=== PATIENT | female | born 1990 | race Caucasian/White ===

== ENCOUNTER 2020-07-13 02:19 | Emergency (ER) | payer OTHER ==
[2020-07-13 02:26] VITALS: BP 130/86; PULSE 74; TEMP 97.9; BMI 24.2
== END 2020-07-13 03:34 | disposition home or self-care (01) ==
LOC: FER 02:19
DX: S62.001A Unspecified fracture of navicular [scaphoid] bone of right wrist, initial encounter for closed fracture (principal); S53.401A Unspecified sprain of right elbow, initial encounter
CPT/HCPCS: 73070-TC-RT-FY; 73130-TC-RT-FY; 99285-25

== ENCOUNTER 2021-04-17 04:12 | Emergency (ER) | payer OTHER ==
[2021-04-17 04:35] VITALS: BP 122/72; PULSE 76; TEMP 98.1; BMI 24.2
== END 2021-04-17 04:44 | disposition home or self-care (01) ==
LOC: FER 04:12
DX: Z77.21 Contact with and (suspected) exposure to potentially hazardous body fluids (principal)
CPT/HCPCS: 99282-25

== ENCOUNTER 2022-08-09 08:25 | Emergency (ER) | payer OTHER ==
[2022-08-09 08:38] VITALS: BP 129/87; PULSE 74; RESP 18; TEMP 98.9; BMI 28.2
== END 2022-08-09 08:56 | disposition home or self-care (01) ==
LOC: FER 08:25
DX: Z77.21 Contact with and (suspected) exposure to potentially hazardous body fluids (principal)
CPT/HCPCS: 99282-25

== ENCOUNTER 2022-09-03 04:10 | Emergency (ER) | payer OTHER ==
[2022-09-03 04:27] VITALS: BP 132/92; PULSE 61; RESP 18; TEMP 98.8
[2022-09-03 04:34] VITALS: BMI 28.2
[2022-09-03] MEDS ORDERED: IBUPROFEN 400 MG TABLET (FP) PO ONE ×2 (04:37→04:41)
== END 2022-09-03 05:41 | disposition home or self-care (01) ==
LOC: FER 04:10
DX: S00.33XA Contusion of nose, initial encounter (principal); R42 Dizziness and giddiness; Y35.891A Legal intervention involving other specified means, law enforcement official injured, initial encounter
CPT/HCPCS: 70160-TC-FY; 99283-25

== ENCOUNTER 2022-09-18 07:53 | Emergency (ER) | payer OTHER ==
[2022-09-18 08:10] VITALS: BP 134/94; PULSE 76; RESP 18; TEMP 98.3; BMI 29.0
[2022-09-18] MEDS ORDERED: IBUPROFEN 600 MG TABLET (FP) PO ONE ×2 (08:21→08:31)
[2022-09-18 11:25] LABS: HEMATOCRIT 40.4 % (32.4-45.2); MCH 30.3 pg (25.7-33.7); MCHC 34.6 g/dl (32.0-36.0); MEAN CELL VOLUME 87.5 fl (80-96); MEAN PLT VOLUME 7.9 fl (7.5-11.1); PLATELET COUNT 253.2 10^3/uL (134-434); RBC 4.62 10^6/uL (3.60-5.2); RDW 14.3 % (11.6-15.6)
[2022-09-18 11:41] LABS: ALBUMIN 4.5 g/dl (3.4-5.0); BILIRUBIN,TOTAL 0.4 mg/dl (0.2-1); BLOOD UREA NITROGEN 21.4 mg/dl (7-18); CALCIUM 9.1 mg/dl (8.5-10.1); CREATININE 0.9 mg/dl (0.6-1.3); SGPT/ALT 22.8 U/L (7-52); TOT PROT 7.3 g/dl (6.4-8.2)
[2022-09-18 12:05] LABS: PLATELET ESTIMATE ADEQUATE
== END 2022-09-18 11:57 | disposition home or self-care (01) ==
LOC: FER 07:53
DX: M79.601 Pain in right arm (principal); R20.2 Paresthesia of skin; W22.8XXA Striking against or struck by other objects, initial encounter; Y99.0 Civilian activity done for income or pay
CPT/HCPCS: 36415; 73030-TC-RT-FY; 73060-TC-RT-FY; 73070-TC-RT-FY; 73110-TC-RT-FY; 73130-TC-RT-FY; 80053; 82550; 85025; 99284-25

== ENCOUNTER 2023-11-16 06:41 | Emergency (ER) | payer OTHER ==
[2023-11-16 06:48] VITALS: BP 126/78; PULSE 83; RESP 16; TEMP 99; BMI 29.2
[2023-11-16] MEDS ORDERED: IBUPROFEN 600 MG TABLET (FP) PO ONE (07:14)
[2023-11-16] MEDS: IBUPROFEN 600 MG TABLET (FP) PO ONE (07:15)
[2023-11-16 08:45] LABS: HEMATOCRIT 42.7 % (32.4-45.2); HEMOGLOBIN 13.7 G/dL (10.7-15.3); MCH 28.6 pg (25.7-33.7); MCHC 32.2 g/dl (32.0-36.0); MEAN CELL VOLUME 88.9 fl (80-96); MEAN PLT VOLUME 9.1 fl (7.5-11.1); PLATELET COUNT 262.2 10^3/uL (134-434); RDW 13.8 % (11.6-15.6); WHITE BLOOD COUNT 7.4 10^3/uL (4.0-10.8)
[2023-11-16 08:57] LABS: ALBUMIN 4.6 g/dl (3.4-5.0); ALK PHOS 89 U/L (45-117); ANION GAP 9 mmol/L (4-13); BILIRUBIN,TOTAL 0.4 mg/dl (0.2-1); CALCIUM 9.3 mg/dl (8.5-10.1); CHLORIDE 104 mmol/L (98-107); CO2 23 mmol/L (21-32); CREATININE 0.7 mg/dl (0.6-1.3); GLUCOSE,RANDOM 101 mg/dl (74-106); POTASSIUM 3.9 mmol/L (3.5-5.1); SGOT/AST 17 U/L (15-37); SGPT/ALT 20 U/L (7-52); SODIUM 136 mmol/L (136-145); TOT PROT 7.1 g/dl (6.4-8.2)
[2023-11-16 09:51] LABS: GAMMA GLUTAMYL TRANSPEPTIDASE 42 U/L (5-85)
[2023-11-16 09:53] LABS: PLATELET ESTIMATE ADEQUATE
[2023-11-16 15:02] LABS: HIV INTERPRETATION NEGATIVE (NEGATIVE)
== END 2023-11-16 08:36 | disposition home or self-care (01) ==
LOC: FER 06:41
PROC: 2W3CX1Z Immobilization of Right Lower Arm using Splint (ICD-10-PCS; principal; 2023-11-16)
DX: S69.91XA Unspecified injury of right wrist, hand and finger(s), initial encounter (principal); R20.2 Paresthesia of skin; W23.0XXA Caught, crushed, jammed, or pinched between moving objects, initial encounter; Z77.21 Contact with and (suspected) exposure to potentially hazardous body fluids
CPT/HCPCS: 36415; 73110-TC-RT-FY; 73130-TC-RT-FY; 80053; 81025; 82977; 85025; 86704; 86803; 87340; 87389; 87517; 99284-25